=== PATIENT | female | born 2000 | race American Indian/Alaskan Native ===

== ENCOUNTER 2020-09-02 12:10 | Emergency (ER) | payer OTHER ==
[2020-09-02 13:42] VITALS: BP 116/62
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
[2020-09-02] MEDS ORDERED: ACETAMINOPHEN 500 MG TAB PO ONE (18:00)
[2020-09-02] MEDS ORDERED: IBUPROFEN 600 MG TAB PO ONE (18:00)
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
== END 2020-09-02 19:52 | disposition home or self-care (01) ==
LOC: ED 12:10
DX: M62.830 Muscle spasm of back (principal); M54.5 Low back pain; M54.2 Cervicalgia; G44.309 Post-traumatic headache, unspecified, not intractable; Z98.890 Other specified postprocedural states; Z88.1 Allergy status to other antibiotic agents; Z79.899 Other long term (current) drug therapy; V89.2XXA Person injured in unspecified motor-vehicle accident, traffic, initial encounter; Y93.89 Activity, other specified; Y92.488 Other paved roadways as the place of occurrence of the external cause; Y99.8 Other external cause status
CPT/HCPCS: 70450; 72100; 72125; 99284